=== PATIENT | female | born 1960 | race Caucasian/White ===

== ENCOUNTER 2017-05-25 06:22 | Emergency (ER) | payer OTHER ==
[~2017-05-25] VITALS: Ht 154.9 cm; Wt 54.7 kg
[~2017-05-25 06:22] MED LIST: ALBU8.5H5 INH; BUSP5TAB2 PO; CETI10TA32 PO; DIPH25CA61 PO; FLUT1DIS3 INH; HYDR-3240 PO; LISI-167 PO; LORA-446 PO; OMEP-110 PO; OMEP20CA14 PO; TRAZ50TA18 PO
[2017-05-25] MEDS ORDERED: MORPHINE SULFATE 4 MG/ML, 1ML IVPush PRN (07:00)
[2017-05-25] MEDS ORDERED: FAMOTIDINE 20 MG/2 ML IVP ONE (07:00)
[2017-05-25] MEDS ORDERED: MAALOX/HYOSCYAMINE/LIDOCAINE 45 ML BTL PO ONE (07:00)
[2017-05-25] MEDS ORDERED: DIPHENHYDRAMINE 50 MG/ML, 1ML IVPush ONE (07:00)
[2017-05-25] MEDS ORDERED: METOCLOPRAMIDE 5 MG/ML, 2ML IVPush ONE (07:00)
[2017-05-25] MEDS ORDERED: SODIUM CHLORIDE 0.9% 1,000ML IVBOLUS ONE ×2 (07:00→07:30)
[2017-05-25] MEDS ORDERED: SODIUM CHLORIDE FLUSH 10ML SYR IVF ONE (07:00)
[2017-05-25] MEDS ORDERED: METOCLOPRAMIDE 5 MG/ML, 2ML ONE (07:05)
[2017-05-25] MEDS ORDERED: MORPHINE SULFATE 4 MG/ML, 1ML ONE (07:05)
[2017-05-25] MEDS ORDERED: DIPHENHYDRAMINE 50 MG/ML, 1ML ONE (07:06)
[2017-05-25] MEDS ORDERED: FAMOTIDINE 20 MG/2 ML ONE (07:06)
[2017-05-25] MEDS ORDERED: MAALOX/HYOSCYAMINE/LIDOCAINE 45 ML BTL ONE (07:06)
[2017-05-25 07:10] LABS: HEMATOCRIT 44.6 % (34.6-47.8); HEMOGLOBIN 15.1 g/dL (11.7-16.4); WHITE BLOOD COUNT 6.2 x10^3/uL (3.4-10)
[2017-05-25 07:19] LABS: ASPARTATE AMINO TRANSFERASE 181 U/L (15-37); BLOOD UREA NITROGEN 9 mg/dL (7-18)
[2017-05-25] MEDS ORDERED: OMNIPAQUE 350 MG/ML, 100ML BOTTLE ONE (08:43)
[2017-05-25 10:47] VITALS: BP 143/80
== END 2017-05-25 10:49 | disposition home or self-care (01) ==
LOC: ED 06:40
DX: A09 Infectious gastroenteritis and colitis, unspecified (principal); R11.2 Nausea with vomiting, unspecified; F17.210 Nicotine dependence, cigarettes, uncomplicated; J45.909 Unspecified asthma, uncomplicated
CPT/HCPCS: 36415; 74022; 74177; 80053; 81001; 83690; 85025; 87086; 96361; 96374; 96375; 99285; J1200; J2765; J7030; Q9967; S0028

== ENCOUNTER 2017-06-07 03:25 | Emergency (ER) | payer OTHER ==
[~2017-06-07] VITALS: Ht 157.5 cm; Wt 56.2 kg
[2017-06-07] MEDS ORDERED: ONDANSETRON 2MG/ML, 2ML ONE ×2 (03:51→04:32)
[2017-06-07] MEDS ORDERED: MORPHINE SULFATE 4 MG/ML, 1ML ONE ×2 (03:51→04:34)
[2017-06-07] MEDS ORDERED: SODIUM CHLORIDE FLUSH 10ML SYR IVF ONE (04:00)
[2017-06-07] MEDS ORDERED: ONDANSETRON 2MG/ML, 2ML IVPush ONE (04:00)
[2017-06-07] MEDS ORDERED: PROMETHAZINE 25 MG/ML, 1ML IM ONE (04:00)
[2017-06-07] MEDS ORDERED: SODIUM CHLORIDE 0.9% 1,000ML IVBOLUS ONE (04:00)
[2017-06-07 04:05] LABS: HEMATOCRIT 43.9 % (34.6-47.8); HEMOGLOBIN 14.7 g/dL (11.7-16.4); WHITE BLOOD COUNT 5.9 x10^3/uL (3.4-10)
[2017-06-07] MEDS ORDERED: OMNIPAQUE 350 MG/ML, 100ML BOTTLE ONE (04:08)
[2017-06-07] MEDS: MORPHINE SULFATE 4 MG/ML, 1ML IVPush PRN ×2 (04:15→04:32)
[2017-06-07 04:18] LABS: ASPARTATE AMINO TRANSFERASE 345 U/L (15-37); BLOOD UREA NITROGEN 5 mg/dL (7-18)
[2017-06-07] MEDS ORDERED: PROMETHAZINE 25 MG/ML, 1ML ONE (04:31)
[2017-06-07 05:18] VITALS: BP 136/84
== END 2017-06-07 05:22 | disposition home or self-care (01) ==
LOC: ED 05:15
DX: K70.10 Alcoholic hepatitis without ascites (principal); K29.20 Alcoholic gastritis without bleeding; R79.89 Other specified abnormal findings of blood chemistry; F10.229 Alcohol dependence with intoxication, unspecified; F17.200 Nicotine dependence, unspecified, uncomplicated; F32.9 Major depressive disorder, single episode, unspecified; F41.9 Anxiety disorder, unspecified; J45.909 Unspecified asthma, uncomplicated; Z90.49 Acquired absence of other specified parts of digestive tract; Z88.2 Allergy status to sulfonamides
CPT/HCPCS: 36415; 74177; 80053; 80307; 81001; 83690; 85025; 87086; 96361; 96372; 96374; 96375; 99285; J2405; J2550; J7030; Q9967

== ENCOUNTER 2017-10-05 07:25 | Emergency (ER) | payer MEDICAID, OTHER ==
[~2017-10-05] VITALS: Ht 152.4 cm; Wt 58.9 kg
[2017-10-05 07:26] VITALS: BP 149/98
[2017-10-05] MEDS ORDERED: KETOROLAC 30 MG/1 ML IM ONE (08:30)
[2017-10-05] MEDS ORDERED: HYDROcodone/APAP 5/325 TABLET PO PRN (08:30)
[2017-10-05] MEDS ORDERED: HYDROcodone/APAP 5/325 TABLET ONE (08:31)
[2017-10-05] MEDS ORDERED: KETOROLAC 30 MG/1 ML ONE (08:32)
== END 2017-10-05 10:43 | disposition home or self-care (01) ==
LOC: ED 10:30
DX: S29.011A Strain of muscle and tendon of front wall of thorax, initial encounter (principal); J45.909 Unspecified asthma, uncomplicated
CPT/HCPCS: 71101; 93005; 96372; 99284; J1885

== ENCOUNTER 2021-07-14 06:12 | Emergency (ER) | payer MEDICAID ==
[~2021-07-14] VITALS: Ht 162.6 cm; Wt 77.5 kg
[~2021-07-14 06:12] MED LIST changes: +HYDR-2214 PO; -HYDR-3240 PO; -OMEP20CA14 PO; +OMEP20CA20 PO; -TRAZ50TA18 PO; +TRAZ50TA66 PO
[2021-07-14 06:14] VITALS: BP 127/80
--- NOTE | 2021-07-14 06:41 | NUR ---
Pt ambulating to bathroom, steady gait.
[2021-07-14] MEDS ORDERED: SODIUM CHLORIDE FLUSH 10ML SYR IVF ONE (07:00)
--- NOTE | 2021-07-14 07:00 | NUR ---
Report from jenny taylor With assessment patient appears stable but with protuberant abd piv placed-from which labs were sent. Updated on estimated poc (to have paracentesis shortly)
--- NOTE | 2021-07-14 07:01 | NUR ---
ED RN to ED RN handoff report given to BOUBACAR Quinones; questions answered. Pt updated on plan of care, change of nurse.
[2021-07-14] MEDS ORDERED: LIDOCAINE 1%, 10ML ONE ×2 (07:52→07:53)
--- NOTE | 2021-07-14 08:03 | NUR ---
to ir for paracentesis
--- NOTE | 2021-07-14 08:47 | NUR ---
Bck from paracentesis where 3l of ascitic fluid was drained. Abd now much less rotund/tight to touch patient reports "i feel much better." ERP to bedside to evaluate
== END 2021-07-14 09:11 | disposition home or self-care (01) ==
LOC: ED 06:42
DX: K70.31 Alcoholic cirrhosis of liver with ascites (principal); J44.9 Chronic obstructive pulmonary disease, unspecified; Z87.891 Personal history of nicotine dependence
CPT/HCPCS: 49083; 99285; J3490